=== PATIENT | male | born 1985 | race Hispanic/Latino ===

== ENCOUNTER 2020-09-29 16:19 | Emergency (ER) | payer OTHER ==
[2020-09-29] MEDS ORDERED: KETOROLAC 60 MG VIAL (30MG/ML) ONE (16:42)
[2020-09-29] MEDS ORDERED: CYCLOBENZAPRINE HCL 10 MG TABLET ONE (16:43)
== END 2020-09-29 17:49 | disposition home or self-care (01) ==
LOC: EDH 16:19
DX: S16.1XXA Strain of muscle, fascia and tendon at neck level, initial encounter (principal); V49.59XA Passenger injured in collision with other motor vehicles in traffic accident, initial encounter; Y93.89 Activity, other specified; Y92.89 Other specified places as the place of occurrence of the external cause; Y99.8 Other external cause status
CPT/HCPCS: 72040; 96372; 99283; J1885